=== PATIENT | female | born 1975 | race Caucasian/White ===

== ENCOUNTER → 2021-02-08 14:42 | Outpatient (CLI) | payer BC, SELFPAY ==
[2021-02-08 15:32] LABS: Basophils # 0.1 K/mm3 (0-0.2); Basophils % 0.7 % (0.1-2.0); Eosinophils # 0.1 K/mm3 (0.0-0.4); Eosinophils % 1.5 % (0.1-12.0); Hematocrit 45.5 % (37.0-47.0); Hemoglobin 14.9 g/dL (12.2-16.2); Lymphocytes # 2.5 K/mm3 (0.7-4.5); Lymphocytes % 37.3 % (10-50); Mean Corpuscular HGB Conc 32.7 g/dL (31.8-35.4); Mean Corpuscular Hemoglobin 30.2 pg (27.0-31.2); Mean Corpuscular Volume 92.4 fl (81-99); Mean Platelet Volume 10.5 fl (7.4-10.4); Monocytes # 0.4 K/mm3 (0.1-1.0); Neutrophils # 3.7 K/mm3 (1.8-7.8); Neutrophils % 54.5 % (37.0-80.0); Platelet Count 136 K/mm3 (142-424); Red Blood Count 4.92 M/mm3 (4.20-5.40); Red Cell Distribution Width 14.2 % (11.5-17.5); White Blood Count 6.8 K/mm3 (4.8-10.8)
[2021-02-08 15:39] LABS: Alanine Aminotransferase 18 U/L (12-78); Albumin Level 4.6 g/dl (3.5-5.0); Albumin/Globulin Ratio 1.5 (1.1-1.8); Alkaline Phosphatase 130 U/L (38-126); Anion Gap 18.9 mEq/L (5-15); Aspartate Amino Transferase 32 U/L (14-36); Bilirubin,Total 0.6 mg/dl (0.2-1.3); Blood Urea Nitrogen 10 mg/dl (7-17); Calcium 9.9 mg/dl (8.4-10.2); Carbon Dioxide 19 mmol/L (22.0-30.0); Chloride 106 mmol/L (98-107); Chol/HDL Ratio 6.9 (1-3.5); Cholesterol 213 mg/dl (140-200); Estimated Glomerular Filt Rate 135 ml/min (>60); GFR (African American) 163 ML/MIN (>60); Globulin 3.1 g/dL (1.3-3.2); Glucose 355 mg/dl (74-100); HDL Cholesterol 31 mg/dl (40-60); Potassium 4.9 mmoL/L (3.5-5.1); Sodium 139 mmol/L (136-145); Total Protein,Serum 7.7 g/dl (6.3-8.2); Triglycerides 289 mg/dl (30-150); VLDL Cholesterol 58 mg/dL (0-40)
[2021-02-08 15:41] LABS: Amphetamine/Metha Screen,Urine Negative ng/ml (<1000)
[2021-02-08 15:42] LABS: Barbiturates Screen,Urine Negative ng/ml (<200); Benzodiazepines Screen,Urine Negative ng/ml (<200)
[2021-02-08 15:43] LABS: Cannabinoid Screen,Urine Positive ng/ml (<50); Cocaine Screen,Urine Negative ng/ml (<300)
[2021-02-08 15:44] LABS: Methadone Screen,Urine Negative ng/ml (<300)
[2021-02-08 15:45] LABS: Opiate Screen,Urine Negative ng/ml (<300); Phencyclidine Screen,Urine Negative ng/ml (<25)
[2021-02-08 15:50] LABS: Direct LDL Cholesterol 131.91 mg/dL (100-129)
[2021-02-08 15:56] LABS: 25-OH Vitamin D, Total 18.3 ng/mL (30-100)
[2021-02-08 15:59] LABS: Microalbumin/Creatinine Ratio 28.7
[2021-02-08 16:02] LABS: Creatinine,Urine Random 77 mg/dL (Not Estab.)
[2021-02-08 16:10] LABS: Thyroid Stimulating Hormone 2.73 uIU/mL (0.465-4.68)
[2021-02-08 16:14] LABS: Free T4 (Free Thyroxine) 0.94 ng/dl (0.78-2.19)
[2021-02-08 16:15] LABS: Erythrocyte Sedimentation Rate 20 mm/hr (0-20)
[2021-02-08 17:29] LABS: Hemoglobin A1C 11.7 % (4.0-6.0)
[2021-02-10 10:23] LABS: Hep A Ab, IgM Negative (Negative); Hepatitis B Core Antibody IgM Negative (Negative); Hepatitis B Surface Antigen Negative (Negative); Hepatitis C Antibody <0.1 s/co ratio (0.0-0.9)
== END ==
PROVIDERS: Visit Provider Emergency Medicine
DX: E11.9 Type 2 diabetes mellitus without complications (principal); E55.9 Vitamin D deficiency, unspecified; R53.83 Other fatigue; Z79.4 Long term (current) use of insulin; Z79.899 Other long term (current) drug therapy
CPT/HCPCS: 80053; 80061; 80074; 80305; 82043; 82306; 82570; 83036; 84439; 84443; 85025; 85651

== ENCOUNTER → 2021-02-22 14:00 | Outpatient (CLI) | payer BC, SELFPAY ==
--- NOTE | 2021-02-22 14:00 | US_ITS ---
PROCEDURE: US EXTREMITY LT LIMITED CLINICAL INDICATION: questionable bakers cyst on left knee COMPARISON: No exams were available for comparison FINDINGS: No cyst or mass apparent. IMPRESSION: No evidence of Kohli's cyst. Dictated by: Teofilo Hatch MD 02/22/2021 15:53 Teofilo Hatch MD in [place] 02/22/2021 15:53
--- NOTE | 2021-02-22 14:37 | MR_ITS ---
PROCEDURE: MR CERVICAL SPINE WO CON CLINICAL INDICATION: neck pain COMPARISON: No exams were available for comparison TECHNIQUE: Standard multiplanar multiecho sequences are performed without contrast. 3-D MIP and myelographic images are also rendered and reviewed FINDINGS: Craniocervical junction has an unremarkable appearance. There is reversal cervical lordosis which may be due to patient positioning or muscle spasm. C2-C3: Mild uncovertebral hypertrophy on the left. Minimal left-sided foraminal narrowing. C3-C4: Mild degenerative disc disease. C4-C5: Degenerative disc disease with narrowing of the canal at 10 mm. Mild bilateral foraminal narrowing from uncovertebral hypertrophy. C5-C6: Degenerative disc disease with anterior osteophytes. Medium-sized central and right paracentral disc osteophyte complex causing compression upon the cord with flattening of the cord anteriorly and on the right with severe right lateral recess narrowing. This is causing moderate to severe canal stenosis of 7 mm. There is uncovertebral hypertrophy with bilateral foraminal narrowing. C6-C7: Degenerative disc disease with anterior osteophytes and canal stenosis of 9 mm. No cord flattening or impingement. C7-T1: Unremarkable. IMPRESSION: 1. Multilevel cervical spondylosis. Please see above for detailed description at each level. 2. C4-C5: Degenerative disc disease with narrowing of the canal at 10 mm. Mild bilateral foraminal narrowing from uncovertebral hypertrophy. 3. C5-C6: Degenerative disc disease with anterior osteophytes. Medium-sized central and right paracentral disc osteophyte complex causing compression upon the cord with flattening of the cord anteriorly and on the right with severe right lateral recess narrowing. This is causing moderate to severe canal stenosis of 7 mm. There is uncovertebral hypertrophy with bilateral foraminal narrowing. 4. C6-C7: Degenerative disc disease with anterior osteophytes and canal stenosis of 9 mm. No cord flattening or impingement. Dictated by: Teofilo Hatch MD 02/23/2021 08:13 Teofilo Hatch MD in [place] 02/23/2021 08:13
--- NOTE | 2021-02-22 14:37 | MR_ITS ---
PROCEDURE: MR LUMBAR SPINE WO CON CLINICAL INDICATION: back pain COMPARISON: MR [employer] ROOM/O MRI-L-SPINE W/O from 09/24/2016 TECHNIQUE: Standard multiplanar multiecho sequences are performed without contrast. 3-D MIP and myelographic images are also rendered and reviewed FINDINGS: There is normal alignment. The spinal cord ends at the L1-L2 level. L1-L2: Unremarkable. L2-L3: Unremarkable. L3-L4: Unremarkable. L4-5: Mild bulging disc with moderate facet and ligamentum hypertrophic change resulting in moderate bilateral lateral recess narrowing slightly greater on right and mild bilateral foraminal narrowing slightly greater on the left and slightly increased compared to the previous exam. The facet and ligamentum hypertrophic changes has also slightly increased. There is borderline canal stenosis with persistent transverse narrowing of the canal.. L5-S1: Degenerative disc disease with concentric bulging disc and small broad based central disc protrusion along facet and ligamentum hypertrophic changes. The small central disc protrusion has slightly increased compared to the previous exam. There is bilateral lateral recess narrowing and mild left foraminal narrowing. These findings are not significantly changed. No extruded herniated disc. IMPRESSION: 1. L4-5: Mild bulging disc with moderate facet and ligamentum hypertrophic change resulting in moderate bilateral lateral recess narrowing slightly greater on right and mild bilateral foraminal narrowing slightly greater on the left and slightly increased compared to the previous exam. The facet and ligamentum hypertrophic changes has also slightly increased. There is borderline canal stenosis with persistent transverse narrowing of the canal.. 2. L5-S1: Degenerative disc disease which is slightly worse with concentric bulging disc and small broad based central disc protrusion along facet and ligamentum hypertrophic changes. The small central disc protrusion has slightly increased compared to the previous exam. There is bilateral lateral recess narrowing and mild left foraminal narrowing. These findings are not significantly changed. 3. No extruded herniated disc. Dictated by: Teofilo Hatch MD 02/23/2021 08:03 Teofilo Hatch MD in [place] 02/23/2021 08:03
== END ==
PROVIDERS: PCP Emergency Medicine; Visit Provider Emergency Medicine
DX: M54.2 Cervicalgia (principal); M54.9 Dorsalgia, unspecified; M71.20 Synovial cyst of popliteal space [Baker], unspecified knee
CPT/HCPCS: 72141; 72148; 76376; 76882

== ENCOUNTER → 2021-04-01 14:13 | Outpatient (CLI) | payer BC, SELFPAY ==
[2021-04-01 15:04] LABS: Amphetamine/Metha Screen,Urine Negative ng/ml (<1000)
[2021-04-01 15:05] LABS: Barbiturates Screen,Urine Negative ng/ml (<200)
[2021-04-01 15:07] LABS: Benzodiazepines Screen,Urine Negative ng/ml (<200); Cannabinoid Screen,Urine Negative ng/ml (<50)
[2021-04-01 15:08] LABS: Cocaine Screen,Urine Negative ng/ml (<300)
[2021-04-01 15:09] LABS: Methadone Screen,Urine Negative ng/ml (<300); Opiate Screen,Urine Negative ng/ml (<300)
[2021-04-01 15:10] LABS: Phencyclidine Screen,Urine Negative ng/ml (<25)
== END ==
PROVIDERS: Visit Provider Emergency Medicine
DX: Z79.899 Other long term (current) drug therapy (principal)
CPT/HCPCS: 80305

== ENCOUNTER → 2021-05-28 14:03 | Outpatient (CLI) | payer BC, SELFPAY ==
[2021-05-28 15:53] LABS: Barbiturates Screen,Urine Negative ng/ml (<200)
[2021-05-28 15:54] LABS: Cannabinoid Screen,Urine Negative ng/ml (<50)
[2021-05-28 15:55] LABS: Cocaine Screen,Urine Negative ng/ml (<300)
[2021-05-28 15:56] LABS: Methadone Screen,Urine Negative ng/ml (<300); Opiate Screen,Urine Negative ng/ml (<300)
[2021-05-28 15:57] LABS: Phencyclidine Screen,Urine Negative ng/ml (<25)
[2021-05-28 16:13] LABS: Amphetamine/Metha Screen,Urine Negative ng/ml (<1000)
[2021-05-28 16:18] LABS: Benzodiazepines Screen,Urine Negative ng/ml (<200)
== END ==
PROVIDERS: Visit Provider Emergency Medicine
DX: Z79.899 Other long term (current) drug therapy (principal)
CPT/HCPCS: 80305

== ENCOUNTER → 2021-06-05 13:43 | Outpatient (CLI) | payer BC, SELFPAY | PROVIDERS: Visit Provider Nurse Practitioner Family | DX: E11.9 Type 2 diabetes mellitus without complications (principal) | CPT/HCPCS: 82043 ==

== ENCOUNTER → 2021-06-25 10:49 | Outpatient (CLI) | payer BC, SELFPAY ==
[2021-06-25 13:16] LABS: Hemoglobin A1C 4.9 % (4.0-6.0)
== END ==
PROVIDERS: PCP Emergency Medicine; Visit Provider Nurse Practitioner Family
DX: E11.9 Type 2 diabetes mellitus without complications (principal); Z79.4 Long term (current) use of insulin
CPT/HCPCS: 36415; 83036

== ENCOUNTER → 2021-07-23 14:42 | Outpatient (CLI) | payer BC, SELFPAY ==
[2021-07-23 15:28] LABS: Amphetamine/Metha Screen,Urine Negative ng/ml (<1000)
[2021-07-23 15:29] LABS: Barbiturates Screen,Urine Negative ng/ml (<200)
[2021-07-23 15:30] LABS: Benzodiazepines Screen,Urine Negative ng/ml (<200); Cannabinoid Screen,Urine Negative ng/ml (<50)
[2021-07-23 15:32] LABS: Cocaine Screen,Urine Negative ng/ml (<300); Methadone Screen,Urine Negative ng/ml (<300)
[2021-07-23 15:33] LABS: Opiate Screen,Urine Positive ng/ml (<300); Phencyclidine Screen,Urine Negative ng/ml (<25)
== END ==
PROVIDERS: Visit Provider Emergency Medicine
DX: Z79.899 Other long term (current) drug therapy (principal)
CPT/HCPCS: 80305

== ENCOUNTER → 2021-09-16 15:53 | Outpatient (CLI) | payer BC, SELFPAY ==
--- NOTE | 2021-09-16 15:55 | CA_ITS ---
FINAL REPORT TECHNIQUE: Ultrasound images of the deep venous system were obtained from the left groin to the calf veins. CLINICAL HISTORY: EDEMA,LATERAL CALF PAIN,NKI FINDINGS: The deep venous system is normally compressible. Normal flow is identified. IMPRESSION: No evidence of left lower extremity DVT. Reviewed, Interpreted and Dictated by Terrell Fermin MD Transcribed by Tory Vinson Authenticated by Terrell Fermin MD on 09/16/2021 04:52:37 PM [facility]
--- NOTE | 2021-09-16 16:23 | XR_ITS ---
FINAL REPORT CLINICAL HISTORY: pain FINDINGS: LEFT ANKLE: Three views of the left ankle were obtained. There is no acute fracture or dislocation. There is mild anterior subluxation of the talus relative to the distal tibia concerning for underlining ligamentous instability. There is a small plantar spur. IMPRESSION: Findings concerning for ligamentous instability. Reviewed, Interpreted and Dictated by Terrell Fermin MD Transcribed by Troy Vinson Authenticated by Terrell Fermin MD on 09/19/2021 10:56:50 AM [facility]
== END ==
PROVIDERS: PCP Emergency Medicine; Visit Provider Nurse Practitioner Family
DX: M25.572 Pain in left ankle and joints of left foot (principal); M25.472 Effusion, left ankle
CPT/HCPCS: 73610; 93971

== ENCOUNTER → 2021-09-18 16:00 | Outpatient (CLI) | payer BC, SELFPAY ==
[2021-09-18 18:08] LABS: Amphetamine/Metha Screen,Urine Negative ng/ml (<1000); Barbiturates Screen,Urine Negative ng/ml (<200)
[2021-09-18 18:09] LABS: Benzodiazepines Screen,Urine Negative ng/ml (<200); Cannabinoid Screen,Urine Positive ng/ml (<50)
[2021-09-18 18:10] LABS: Cocaine Screen,Urine Negative ng/ml (<300)
[2021-09-18 18:11] LABS: Methadone Screen,Urine Negative ng/ml (<300); Opiate Screen,Urine Negative ng/ml (<300)
[2021-09-18 18:12] LABS: Phencyclidine Screen,Urine Negative ng/ml (<25)
== END ==
PROVIDERS: Visit Provider Emergency Medicine
DX: Z79.899 Other long term (current) drug therapy (principal)
CPT/HCPCS: 80305

== ENCOUNTER → 2022-03-28 09:56 | Outpatient (CLI) | payer BC, SELFPAY ==
--- NOTE | 2022-03-28 10:04 | XR_ITS ---
FINAL REPORT CLINICAL HISTORY: wrist pain FINDINGS: 3 views of the right wrist were obtained. There is no acute fracture or dislocation. There is mild degenerative change along the radial aspect of the wrist. There is no soft tissue abnormality. IMPRESSION: Mild degenerative change. Reviewed, Interpreted and Dictated by Silvestre Guadalupe III, MD Transcribed by Troy Vinson Authenticated and [facility]
== END ==
PROVIDERS: PCP Emergency Medicine; Visit Provider Orthopaedic Surgery
DX: M25.531 Pain in right wrist (principal)
CPT/HCPCS: 73110

== ENCOUNTER 2022-03-28 11:31 | Outpatient (RCR) | payer BC, SELFPAY | END 2022-03-28 12:30 | disposition home or self-care (01) | LOC: OT 11:31 | PROVIDERS: Visit Provider Orthopaedic Surgery | DX: G56.01 Carpal tunnel syndrome, right upper limb (principal) | CPT/HCPCS: 97763 ==

== ENCOUNTER → 2022-04-30 15:15 | Outpatient (CLI) | payer BC, SELFPAY ==
[2022-04-30 18:52] LABS: Amphetamine/Metha Screen,Urine Negative ng/ml (<1000)
[2022-04-30 18:53] LABS: Barbiturates Screen,Urine Negative ng/ml (<200)
[2022-04-30 18:55] LABS: Benzodiazepines Screen,Urine Negative ng/ml (<200); Cannabinoid Screen,Urine Negative ng/ml (<50)
[2022-04-30 18:56] LABS: Cocaine Screen,Urine Negative ng/ml (<300)
[2022-04-30 18:57] LABS: Methadone Screen,Urine Negative ng/ml (<300); Opiate Screen,Urine Negative ng/ml (<300)
[2022-04-30 18:58] LABS: Phencyclidine Screen,Urine Negative ng/ml (<25)
== END ==
PROVIDERS: PCP Emergency Medicine; Visit Provider Emergency Medicine
DX: Z79.899 Other long term (current) drug therapy (principal)
CPT/HCPCS: 80305

== ENCOUNTER → 2022-06-25 19:25 | Outpatient (CLI) | payer BC, SELFPAY ==
[2022-06-25 15:07] LABS: Basophils # 0.1 K/mm3 (0-0.2); Basophils % 0.9 % (0.1-2.0); Eosinophils # 0.1 K/mm3 (0.0-0.4); Hemoglobin 15.5 g/dL (12.2-16.2); Lymphocytes # 2.8 K/mm3 (0.7-4.5); Lymphocytes % 33.3 % (10-50); Mean Corpuscular Hemoglobin 32.7 pg (27.0-31.2); Mean Corpuscular Volume 99.1 fl (81-99); Mean Platelet Volume 10.4 fl (7.4-10.4); Monocytes # 0.6 K/mm3 (0.1-1.0); Monocytes % 6.8 % (1.7-9.3); Neutrophils # 4.9 K/mm3 (1.8-7.8); Platelet Count 162 K/mm3 (142-424); Red Blood Count 4.74 M/mm3 (4.20-5.40); Red Cell Distribution Width 15.1 % (11.5-17.5); White Blood Count 8.4 K/mm3 (4.8-10.8)
[2022-06-25 15:26] LABS: Free T4 (Free Thyroxine) 0.89 ng/dl (0.78-2.19)
[2022-06-25 16:14] LABS: Alanine Aminotransferase 19 U/L (12-78); Albumin Level 4.6 g/dl (3.5-5.0); Albumin/Globulin Ratio 1.5 (1.1-1.8); Alkaline Phosphatase 91 U/L (38-126); Anion Gap 11.5 mEq/L (5-15); Aspartate Amino Transferase 34 U/L (14-36); Bilirubin,Total 0.4 mg/dl (0.2-1.3); Blood Urea Nitrogen 16 mg/dl (7-17); Calcium 9.5 mg/dl (8.4-10.2); Carbon Dioxide 24 mmol/L (22.0-30.0); Chloride 105 mmol/L (98-107); Chol/HDL Ratio 6.2 (1-3.5); Cholesterol 204 mg/dl (140-200); Estimated Glomerular Filt Rate 91 ml/min (>60); GFR (African American) 110 ML/MIN (>60); Glucose 167 mg/dl (74-100); HDL Cholesterol 33 mg/dl (40-60); Lipase 41 U/L (23-300); Potassium 4.5 mmoL/L (3.5-5.1); Sodium 136 mmol/L (136-145); Total Protein,Serum 7.6 g/dl (6.3-8.2); Triglycerides 371 mg/dl (30-150); VLDL Cholesterol 74 mg/dL (0-40)
[2022-06-25 16:25] LABS: Direct LDL Cholesterol 129.52 mg/dL (100-129)
[2022-06-25 16:44] LABS: Thyroid Stimulating Hormone 2.45 uIU/mL (0.465-4.68)
[2022-06-25 19:16] LABS: 25-OH Vitamin D, Total 21.4 ng/mL (30-100)
== END ==
PROVIDERS: PCP Emergency Medicine; Visit Provider Emergency Medicine
DX: E11.9 Type 2 diabetes mellitus without complications (principal); E55.9 Vitamin D deficiency, unspecified; Z79.4 Long term (current) use of insulin
CPT/HCPCS: 80053; 80061; 82306; 83690; 84439; 84443; 85025

== ENCOUNTER → 2022-12-09 18:50 | Outpatient (CLI) | payer BC, SELFPAY ==
[2022-12-09 17:26] LABS: Microalbumin/Creatinine Ratio 6.4
[2022-12-09 17:56] LABS: Creatinine,Urine Random 97 mg/dL (Not Estab.)
== END ==
PROVIDERS: PCP Emergency Medicine; Visit Provider Emergency Medicine
DX: E11.9 Type 2 diabetes mellitus without complications (principal); Z79.84 Long term (current) use of oral hypoglycemic drugs
CPT/HCPCS: 82043; 82570

== ENCOUNTER → 2023-02-06 06:57 | Outpatient (CLI) | payer BC, SELFPAY ==
[2023-02-06 13:44] LABS: Amphetamine/Metha Screen,Urine Negative ng/ml (<1000)
[2023-02-06 13:45] LABS: Barbiturates Screen,Urine Negative ng/ml (<200); Benzodiazepines Screen,Urine Negative ng/ml (<200)
[2023-02-06 13:46] LABS: Cannabinoid Screen,Urine Negative ng/ml (<50); Cocaine Screen,Urine Negative ng/ml (<300)
[2023-02-06 13:47] LABS: Methadone Screen,Urine Negative ng/ml (<300)
[2023-02-06 13:48] LABS: Opiate Screen,Urine Negative ng/ml (<300); Phencyclidine Screen,Urine Negative ng/ml (<25)
== END ==
PROVIDERS: PCP Emergency Medicine; Visit Provider Emergency Medicine
DX: Z79.899 Other long term (current) drug therapy (principal)
CPT/HCPCS: 80305

== ENCOUNTER 2023-06-03 12:11 | Outpatient (CLI) | payer BC, SELFPAY ==
[2023-06-03 16:36] LABS: Amphetamine/Metha Screen,Urine Negative ng/ml (<1000); Barbiturates Screen,Urine Negative ng/ml (<200)
[2023-06-03 17:28] LABS: Benzodiazepines Screen,Urine Negative ng/ml (<200); Cannabinoid Screen,Urine Negative ng/ml (<50); Cocaine Screen,Urine Negative ng/ml (<300); Methadone Screen,Urine Negative ng/ml (<300); Opiate Screen,Urine Negative ng/ml (<300); Phencyclidine Screen,Urine Negative ng/ml (<25)
[2023-06-09 17:09] LABS: Opiates Negative (Cutoff=100); Oxycodone (GC/MS) 2235 ng/mL (Cutoff=100); Oxymorphone (GC/MS) 711 ng/mL (Cutoff=100)
[2023-06-10 10:34] LABS: Gabapentin,Urine 388.2 ug/mL (.)
== END 2023-06-03 23:59 ==
LOC: LAB.DROPOF 12:11
PROVIDERS: PCP Nurse Practitioner Family; Visit Provider Nurse Practitioner Family
DX: Z79.899 Other long term (current) drug therapy (principal); M47.22 Other spondylosis with radiculopathy, cervical region; G62.9 Polyneuropathy, unspecified
CPT/HCPCS: 80307; 80361; 80365; G0480

== ENCOUNTER 2023-07-24 09:00 | Outpatient (RCR) | payer BC, SELFPAY ==
--- NOTE | 2023-06-23 12:16 | HMH.PTOPEV ---
PT Outpatient Evaluation Rehab PT Outpatient Evaluation Start: 06/23/23 11:01 Freq: Status: Active Protocol: Document 06/23/23 11:01 TARA (Rec: 06/23/23 12:16 TARA [id number]) E-signed By Paige Matthew, PT Outpatient Therapy Subjective History Subjective History Pt is a 47 y/o female who reports chronic neck pain for ~10 years. Pt also reports intermittent right upper extremity pain and paresthesia . Pt reports numbness/tingling down her right arm into all fingers although she states it is more intense in her pinky and ring finger. Pt also reports constant pain/burning across bilateral shoulder blades. 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 Pt reports she has experienced worsening of pain in the past few months without known trauma/injury. Pt states she did see a neurosurgeon in [place] and they took xrays. Pt reports she has not heard back from them regarding plans for treatment. Pt reports her last MRI of her neck was a few years ago showing DDD and nerve compression per pt. Pt states pain is worse in the mornings. Pt reports pain is aggravated by lifting, turning her head to the R>L, and looking up/down. Pt also reports infrequent headaches that start in the right posterior neck and refer up the right side of her head to the forehead region. Pt denies light/noise sensitivity, dizziness, and n/v with headaches. Medical History: Type II Diabetes, Seizures - neurology appointment 07/07/22, hyperlipidemia, COPD, Asthma, Depression, Anxiety New diagnosis of cancer in past 12 No months? Chief Complaint Pain,Paresthesia,Weakness, Decreased Senior Php Developer Strength Symptom Type Ache,Sharp,Dull,Numbness, Tingling Symptoms Relieved By Rest/Positioning Symptoms Aggravated By Physical Activity Prior Functional Limitations None Current Functional Limitations Reaching,Lifting,Housework Symptom Description Constant but Variable Level of pain today (0-10) 6 Pain scale - at its best (0-10) 4 Pain scale - at its worst (0-10) 8 Cervical Eval Palpation Cervical Muscles R Cervical Paraspinal,L Cervical Paraspinal,R Suboccipital,L Suboccipital,R CT Junction,L CT Junction,R Upper Trapezius,L Upper Trapezius,R Thoracic Paraspinals,L Thoracic Paraspinals Cervical/Thoracic Palpation Findings Tenderness,Muscle Guarding Posture Head/C-Spine Posture Sitting Position Flexed Head/C-Spine Posture Standing Position Flexed Flexibility Deficits Upper Trapezius Muscle Length (R) Moderate Tightness,(L) Moderate Tightness Levaetor Scapulae Muscle Length (R) Moderate Tightness,(L) Moderate Tightness Pectoralis Major Muscle Length (R) Mild Tightness,(L) Mild Tightness Pectoralis Minor Muscle Length (R) Mild Tightness,(L) Mild Tightness Passive Joint Mobility Cervical PIVM Dec: R C2/3 L C2/3 R C3/4 L C3/4 R C4/5 L C4/5 R C5/6 L C5/6 R C6/7 L C6/7 R C7/T1 L C7/T1 AROM Cervical Spine Extension Active Range of 20 Motion (degrees) Cervical Spine Flexion Active Range of 28 Motion (degrees) Cervical Spine Right Lateral Flexion 25 Active Range of Motion (degrees) Cervical Spine Left Lateral Flexion 25 Active Range of Motion (degrees) Cervical Spine Right Rotation Active 40 Range of Motion (degrees) Cervical Spine Left Rotation Active 45 Range of Motion (degrees) MMT Bilateral Deltoid (C5) 5 Normal Biceps Brachii Strength Grade 5 Normal Triceps Brachii Strength Grade 4 Good Extensor Pollicis Longus Strength Grade 5 Normal Finger Abduction Strength Grade 5 Normal DTR Rt Biceps 1+ Lt Biceps 2+ Rt Brachioradialis 1+ Lt Brachioradialis 2+ Rt Triceps 2+ Lt Triceps 2+ Special Test C-Spine Foraminal Compression (Spurling) Positive Right Test C-spine Verterbral Accessory Movements Central P/A Derby,Right P/A that Elicit Symptoms Derby,Left P/A Derby C-Spine Foraminal Distraction Test Positive C-Spine Compression Test Positive Right Shoulder/Elbow Eval Shoulder Objective Measurements Shoulder MMT Bilateral Lower Trapezius Strength Grade 4- Good- Middle Trapezius Strength Grade 4- Good- Rhomboids Strength Grade 4- Good- Upper Trapezius/Levator Scapulae 4 Good Elbow Objective Measurements Wrist/Hand Eval Senior Php Developer/Pinch Strength Left Senior Php Developer Strength Measurement (lbs) 38.6 Right Senior Php Developer Strength Measurement (lbs) 37.3 Neck Disability Index Neck Disability Index Section 1: Pain Intensity The pain is moderate at the moment Section 2: Personal Care (washing, I can look after myself dressing, etc.) normally but it causes extra pain Section 3: Lifting Pain prevents me lifting heavy weights off the floor, but I can manage Section 4: Reading I can read as much as I want to with slight pain in my neck Section 5: Headaches I have no headaches at all Section 6: Concentration I can concentrate fully when I want to with no difficulty Section 7: Work I can only do my usual work, but no more Section 8: Driving I can drive my car without any neck pain Section 9: Sleeping My sleep is midly disturbed (1 -2 hrs sleepless) Section 10: Recreation I am able to engage in most, but not all of my usual recreation NDI Score 11 Outpatient Therapy Assessment Impairments Problems/Impairmments Palpation Tenderness,Impaired Range of Motion,Impaired Strength,Impaired Lifting, Impaired Household Care, Impaired Recreational Activities,Subjective C/O Pain ,Impaired Self Care/Self Management Prognosis Rehab Potential Good Clinical Impression Consistent with Diagnosis Yes Short Term Goals Number of Weeks 3 Increase Range of Motion Yes: Improve cervical AROM by 5 degrees ea plane Increase Strength Yes: Improve R concaving machine operator strength equal to L Decrease Subjective C/O Pain Yes: Improve pain at worst to 6/10 to improve overall QOL Improve Self Care/Self Management Yes Patient to be Ind w/ HEP Yes Snf Goals Number of Weeks 6 Decreased Palpation Tenderness Yes: 1-2/4 TTP of cervical mm and SP Increase Range of Motion Yes: Improve cervical AROM flex/ext to 40, rot to 60, LF to 40 Increase Strength Yes: Improve scapular strength to 4-4+/5 grossly to assist w function/posture Improve Neck Disability Index Score Yes: Improve score to 6 or less to improve overall QOL Decrease Subjective C/O Pain Yes: Improve pain at worst to 6/10 to improve overall QOL Outpatient Therapy Plan of Care Treatment Plan May Include Therapeutic Exercise Including Home Yes Exercise Program Manual Therapy Techniques Yes Neuromuscular Re-education Yes Therapeutic Activities to Return to Yes Previous Functional/Work Level Gait Training Yes ADL/Self Care Education Yes Mechanical Traction Yes Dry Needling Yes Thermal Modalities Yes Electrical Stimulation Yes Ultrasound/Phonophoresis Yes Iontophoresis Yes Massage Yes Eval/Re-Eval Yes Frequency Times per week 2 Duration Number of Weeks 4-6 Addendums This patient is a candidate for social No or vocational rehab? Patient/Guardian verbally acknowledges Yes understanding of treatment program and consents to further treatment? Patient/Guardian verbally acknowledges Yes understanding of diagnosis, prognosis and goals for treatment? Eval Complexity PT Charges 41141 - Low Complexity PHYSICIAN CERTIFICATION: I certify the specified therapy services for Sydnee Nori Bonner are required, authorized, and reviewed every 30 days.
--- NOTE | 2023-07-21 16:36 | HMH.RHREAS ---
Rehab Reassessment Rehab OP Re-assessment Start: 06/23/23 11:01 Freq: Status: Active Protocol: Document 07/21/23 13:00 TARA (Rec: 07/21/23 16:36 TARA [id number]) E-signed By Paige Matthew, PT Neck Disability Index Neck Disability Index Section 1: Pain Intensity The pain is very mild at moment Section 2: Personal Care (washing, I can look after myself dressing, etc.) normally but it causes extra pain Section 3: Lifting Pain prevents me from lifting heavy weights, but I can manage light to Section 4: Reading I can read as much as I want to with slight pain in my neck Section 5: Headaches I have slight headaches, which come infrequently Section 6: Concentration I can concentrate fully when I want to with no difficulty Section 7: Work I can do most of my usual work , but no more Section 8: Driving I can drive my car as long as I want with slight pain in my neck Section 9: Sleeping My sleep is greatly disturbed (3-5 hrs sleepless) Section 10: Recreation I am able to engage in most, but not all of my usual recreation NDI Score 16 Rehab Re-assessment Subjective Subjective Pt reports she feels 20-40% improved since starting PT. Pt reports continued pain of her neck and shoulder blades rated 8/10 at worst. Pt reports this pain occurs with lifting and playing with her 35# grandchild. Pt reports continued intermittent radicular symptoms in the right arm with numbness/ tingling into her pinky and ring fingers. Pt reports decreased automotive mechanic strength of the right hand often dropping items. Pt reports compliance with HEP. Objective Objective Notes Cervical AROM: flex 40, ext 30 , RLF 30, LLF 25, Rrot 50, Lrot 50 Scap strength: 4/5 grossly R automotive mechanic strength: 37# Assessment Progress Assessment Slower Than Expected Assessment Notes Pt has attended 6 PT visits consisting of aerobic exercise , cervical AROM/stretching, scapular strengthening, neural glides, manual therapy, modalities and HEP. Pt demonstrated slightly improved cervical AROM in all planes with exception of left lateral flexion. Pt demonstrated no change in R automotive mechanic strength and slight regression in NDI functional outcome measure this date. Pt would benefit from continued to PT to improve subjective report of pain and radicular symptoms, scapular and automotive mechanic strength, and functional activity tolerance to improve overall QOL and function. If patient does not improve with conservative treatment within 2 weeks, then refer back to MD for further treatment options . Patient goals met ST/5 Goals Not Met p! at worst, automotive mechanic strength, cervical LF AROM Revised Goals n/a Plan Plan Continue initial POC, incorporate trial of mechanical cervical traction. Frequency of Therapy 2x/week Duration of therapy 2-4 more weeks Time and Billing Re-Eval Time 12 Re-Eval Billing Units 1 PHYSICIAN CERTIFICATION: I certify the specified therapy services for Sydnee Bonner are required, authorized, and reviewed every 30 days.
== END 2023-07-24 10:30 | disposition home or self-care (01) ==
LOC: PT 09:00
PROVIDERS: PCP Nurse Practitioner Family; Visit Provider Nurse Practitioner Family
DX: M47.22 Other spondylosis with radiculopathy, cervical region (principal); M48.02 Spinal stenosis, cervical region
CPT/HCPCS: 97010; 97012; 97014; 97110; 97140; 97163; 97164; 97530; G0283

== ENCOUNTER 2023-08-12 08:00 | Outpatient (RCR) | payer BC, SELFPAY ==
--- NOTE | 2023-07-29 14:03 | HMH.PTOPEV ---
PT Outpatient Evaluation Rehab PT Outpatient Evaluation Start: 07/29/23 13:49 Freq: Status: Active Protocol: Document 07/29/23 13:50 THA (Rec: 07/29/23 14:02 THA [id number]) E-signed By Carlo Stover, PT Outpatient Therapy Subjective History Subjective History Patient is a 47 year old female presenting to outpatient PT with reports of chronic LBP with RLE radicular symptoms. Symptoms of insidious onset starting approx 6 years ago. Most recent imaging indicates L 3/4 disc bulge and L5/S1 DDD. Comorbidities include hx of diabetes with BLE neuropathy, seizures, HL and tachycardia. Chief Complaint Pain,Stiff,Paresthesia Symptom Type Sharp,Numbness,Tingling Symptoms Relieved By Ice,Prescription Meds Symptoms Aggravated By Sitting,Bending/Stooping, Lifting Prior Functional Limitations None Current Functional Limitations Reaching,Lifting,Housework, Sleeping,Standing,Sitting, Walking,Bending/Stooping Symptom Description Constant but Variable Level of pain today (0-10) 5 Pain scale - at its best (0-10) 3 Pain scale - at its worst (0-10) 7 Lumbopelvic Eval Posture Thoracic Spine Posture Standing Position Increased Kyphosis Lumbar Spine Posture Standing Position Increased Lordosis Assistive device Assistive Devices None / NA Palapation tenderness right paraspinal tenderness Yes: L3-S1 3/4 buttock tenderness Yes: R>L Accessory Movement L3 right L4 right L5 right S1 right Range of Motion Lumbar Spine Active Flexion Range of 62 Motion (degrees) Lumbar Spine Active Extension Range of 12 Motion (degrees) Left Lumbar Spine Lateral Flexion Active 12 Range of Motion (degrees) Right Lumbar Spine Lateral Flexion 16 Active Range of Motion (degrees) Lumbar Spine ROM Limitations Soft Tissue Tightness,Bony Restriction Manual Muscle Test Right Knee Extension Strength Grade 5 Normal Knee Flexion Strength Grade 5 Normal Hip Flexion Strength Grade 5 Normal Extensor Hallucis Longus Strength Grade 5 Normal Ankle Dorsiflexion Strength Grade 5 Normal Gastronemius/Soleus Strength Grade 5 Normal Altered Sensation LE Dermatome Level L5,S1 Comment NT Special Tests Hip Andrade (RAFAL) Test Positive Left,Positive Right Hip Naz Test Positive Left,Positive Right Hip Piriformis Test Positive Left,Positive Right Sciatic Nerve Tension Test Negative Left,Positive Right Gary Test Positive Sacroiliac Joint Compression Test Negative Left,Negative Right Sacroiliac Joint Distraction Test Negative Left,Negative Right Lumbar [place] Dell Distraction Test/Manual Positive Traction Oswestry Index Section 1 Pain Intensity The pain comes and goes and is moderate Section 2 Personal Care (Washing,Dresing) my way of washing or dressing even though it causes some pain Section 3 Lifting Pain prevents me from lifting weights off the floor Section 4 Walking I cannot walk more than one mile wihtout increasing pain Section 5 Sitting Pain prevents me from sitting for more than one hour Section 6 Standing I cannot stand more than 1 hour without increasing pain Section 7 Sleeping Because of my pain, my normal night's sleep is less than 6 hours sleep Section 8 Social Life My social life is normal but increases the degree of pain Section 9 Traveling I get some pain when traveling , but none of my usual forms of travel m Section 10 Changing Degreee of Pain My pain is neither getting better or worse Score and Risk Level Oswestry Sc 18 Oswestry Risk Level Moderate Disability Outpatient Therapy Assessment Impairments Problems/Impairmments Palpation Tenderness,Impaired Range of Motion,Impaired Strength,Impaired Walking, Impaired Standing,Impaired Sitting,Impaired Lifting, Impaired Household Care, Impaired Bending,Subjective C/ O Pain Prognosis Rehab Potential Good Clinical Impression Consistent with Diagnosis No Short Term Goals Number of Weeks 2 Decrease Subjective C/O Pain Yes: 5/10 at worst Patient to be Ind w/ HEP Yes Detention Goals Number of Weeks 4-6 Decreased Palpation Tenderness Yes: 1/4 Increase Range of Motion Yes: WNL Increase Strength Yes: 5/5 core stabilizers Increase Ability to Walk Yes: 30 min without difficulty Increase Ability to Stand Yes: Improve Ability For Household Care Yes Improve Ability to Bend Yes Improve Oswestry Score Yes: mild disability Decrease Subjective C/O Pain Yes: 2/10 at worst Outpatient Therapy Plan of Care Treatment Plan May Include Therapeutic Exercise Including Home Yes Exercise Program Manual Therapy Techniques Yes Neuromuscular Re-education Yes Therapeutic Activities to Return to Yes Previous Functional/Work Level Gait Training Yes ADL/Self Care Education Yes Mechanical Traction Yes Dry Needling Yes Thermal Modalities Yes Electrical Stimulation Yes Ultrasound/Phonophoresis Yes Iontophoresis Yes Orthotics/Bracing/Splinting Yes Massage Yes Eval/Re-Eval Yes Frequency Times per week 2 Duration Number of Weeks 4-6 Addendums This patient is a candidate for social No or vocational rehab? Patient/Guardian verbally acknowledges Yes understanding of treatment program and consents to further treatment? Patient/Guardian verbally acknowledges Yes understanding of diagnosis, prognosis and goals for treatment? Eval Complexity PT Charges 03734 - Moderate Complexity Shoulder/Elbow Eval Shoulder Objective Measurements Elbow Objective Measurements PHYSICIAN CERTIFICATION: I certify the specified therapy services for Sydnee Nori Bonner are required, authorized, and reviewed every 30 days.
== END 2023-08-12 09:00 | disposition home or self-care (01) ==
LOC: PT 08:00
PROVIDERS: Visit Provider Nurse Practitioner Family
DX: M54.50 Low back pain, unspecified (principal); M48.061 Spinal stenosis, lumbar region without neurogenic claudication
CPT/HCPCS: 97010; 97014; 97140; 97163; 97530; G0283

== ENCOUNTER 2023-08-12 09:16 | Outpatient (CLI) | payer BC, SELFPAY ==
[2023-08-12 10:27] LABS: Basophils # 0.1 K/mm3 (0-0.2); Basophils % 1.4 % (0.1-2.0); Eosinophils # 0.1 K/mm3 (0.0-0.4); Eosinophils % 0.9 % (0.1-12.0); Hematocrit 47.9 % (37.0-47.0); Hemoglobin 15.7 g/dL (12.2-16.2); Lymphocytes # 3.6 K/mm3 (0.7-4.5); Lymphocytes % 49.3 % (10-50); Mean Corpuscular HGB Conc 32.8 g/dL (31.8-35.4); Mean Corpuscular Hemoglobin 32.3 pg (27.0-31.2); Mean Corpuscular Volume 98.6 fl (81-99); Mean Platelet Volume 9.6 fl (7.4-10.4); Monocytes # 0.5 K/mm3 (0.1-1.0); Monocytes % 6.2 % (1.7-9.3); Neutrophils # 3.1 K/mm3 (1.8-7.8); Neutrophils % 42.2 % (37.0-80.0); Platelet Count 122 K/mm3 (142-424); Red Blood Count 4.85 M/mm3 (4.20-5.40); Red Cell Distribution Width 14.8 % (11.5-17.5); White Blood Count 7.3 K/mm3 (4.8-10.8)
[2023-08-12 12:41] LABS: Chloride 104 mmol/L (98-107)
[2023-08-12 12:42] LABS: Potassium 4.3 mmoL/L (3.5-5.1); Sodium 139 mmol/L (136-145)
[2023-08-12 12:44] LABS: Blood Urea Nitrogen 15 mg/dl (7-17); Estimated Glomerular Filt Rate 68 ml/min (>60); GFR (African American) 82 ML/MIN (>60)
[2023-08-12 12:45] LABS: Alanine Aminotransferase 12 U/L (12-78); Albumin/Globulin Ratio 1.5 (1.1-1.8); Alkaline Phosphatase 86 U/L (38-126); Anion Gap 8.3 mEq/L (5-15); Aspartate Amino Transferase 22 U/L (14-36); Bilirubin,Total 0.4 mg/dl (0.2-1.3); Calcium 9.5 mg/dl (8.4-10.2); Carbon Dioxide 31 mmol/L (22.0-30.0); Globulin 2.7 g/dL (1.3-3.2); Glucose 105 mg/dl (74-100); Iron 95 ug/dL (37-170); Total Protein,Serum 6.7 g/dl (6.3-8.2)
[2023-08-12 12:54] LABS: Total Iron Binding Capacity 398 ug/dL (265-497)
[2023-08-12 13:21] LABS: Ferritin 16.8 ng/ml (6.24-137)
[2023-08-12 13:26] LABS: Valproic Acid, (Depakene) 72.7 ug/ml (50-100)
[2023-08-12 13:50] LABS: Thyroid Stimulating Hormone 3.79 uIU/mL (0.465-4.68)
[2023-08-12 14:26] LABS: Vitamin B12 317 pg/mL (239-931)
[2023-08-12 14:27] LABS: Folate 6.95 ng/mL
[2023-08-12 15:03] LABS: Amphetamine/Metha Screen,Urine Negative ng/ml (<1000)
[2023-08-12 15:04] LABS: Barbiturates Screen,Urine Negative ng/ml (<200)
[2023-08-12 15:05] LABS: Benzodiazepines Screen,Urine Negative ng/ml (<200); Cannabinoid Screen,Urine Negative ng/ml (<50)
[2023-08-12 15:06] LABS: Cocaine Screen,Urine Negative ng/ml (<300)
[2023-08-12 15:07] LABS: Opiate Screen,Urine Negative ng/ml (<300)
[2023-08-12 15:08] LABS: Phencyclidine Screen,Urine Negative ng/ml (<25)
[2023-08-12 15:14] LABS: Methadone Screen,Urine Negative ng/ml (<300)
== END 2023-08-12 23:59 ==
LOC: LAB 09:16
PROVIDERS: PCP Nurse Practitioner Family; Visit Provider Nurse Practitioner Family
DX: R40.4 Transient alteration of awareness (principal); R94.01 Abnormal electroencephalogram [EEG]; G47.9 Sleep disorder, unspecified; G25.81 Restless legs syndrome; E66.9 Obesity, unspecified; Z86.69 Personal history of other diseases of the nervous system and sense organs; Z86.2 Personal history of diseases of the blood and blood-forming organs and certain disorders involving the immune mechanism; Z87.898 Personal history of other specified conditions; Z72.0 Tobacco use; Z79.4 Long term (current) use of insulin; Z79.899 Other long term (current) drug therapy; Z68.35 Body mass index [BMI] 35.0-35.9, adult
CPT/HCPCS: 36415; 80053; 80164; 80307; 82607; 82728; 82746; 83540; 83550; 84443; 85025

== ENCOUNTER 2023-08-18 08:51 | Outpatient (CLI) | payer BC, SELFPAY ==
--- NOTE | 2023-08-18 08:54 | MR_ITS ---
FINAL REPORT CLINICAL HISTORY: Seizure protocol. FINDINGS: Multiplanar MR imaging of the brain was performed without and with contrast. There is no evidence of Chiari malformation. There are a few tiny subtle scattered foci in the deep white matter which is abnormal for age. Findings are best seen on image 17 of series 5. Hippocampal formation is intact and symmetric. There is no evidence of intracranial hemorrhage or mass. No abnormal extra-axial fluid collection is seen. The ventricular size is within normal limits. There is no evidence of shift of the midline structures. The posterior fossa and brainstem have an unremarkable appearance. No area of abnormal restricted diffusion is identified. No abnormal contrast enhancement is seen. Normal major vessel vascular flow voids are noted. There is extensive lobular mucoperiosteal thickening in the maxillary sinuses, right greater than left consistent with chronic sinusitis. IMPRESSION: Nonspecific microvascular ischemia which is abnormal for patient's age but can be seen with migraine headaches. Chronic maxillary sinusitis. Reviewed, Interpreted and Dictated by Terrell Fermin MD Transcribed by Mercy Healy Authenticated and [facility]
[2023-08-18] MEDS: GADOTERIDOL INJ 17ML SYRINGE 17 ML IV (09:45)
[2023-08-18] MEDS: SODIUM CHLORIDE 0.9% 10ML SYR (RAD ONLY) 10 ML IV (09:46)
== END 2023-08-18 23:59 ==
LOC: RAD 08:52
PROVIDERS: PCP Nurse Practitioner Family; Visit Provider Nurse Practitioner Family
DX: R40.4 Transient alteration of awareness (principal); R94.01 Abnormal electroencephalogram [EEG]; G47.9 Sleep disorder, unspecified; G25.81 Restless legs syndrome; Z86.69 Personal history of other diseases of the nervous system and sense organs; Z86.2 Personal history of diseases of the blood and blood-forming organs and certain disorders involving the immune mechanism; Z87.898 Personal history of other specified conditions; F17.210 Nicotine dependence, cigarettes, uncomplicated; E66.9 Obesity, unspecified; Z68.35 Body mass index [BMI] 35.0-35.9, adult
CPT/HCPCS: 70553; A9576

== ENCOUNTER 2023-09-25 14:39 | Outpatient (CLI) | payer BC, SELFPAY ==
--- NOTE | 2023-09-25 14:39 | MR_ITS ---
FINAL REPORT TECHNIQUE: Multiplanar MR without contrast CLINICAL HISTORY: left sided neck pain. dominguez, numbness and tingling down left arm. no injury or trauma. COMPARISON: 02/22/2021 FINDINGS: Limited images of the posterior fossa are unremarkable. Alignment is normal. There is very subtle increased density in the central spinal cord at C5-6, probably due to myelomalacia. C2-3: Unremarkable C3-4: Mild annular disc bulge and facet arthropathy. C4-5: Mild annular disc bulge and facet arthropathy. Mild bilateral neural foraminal narrowing. C5-6: Moderate right paracentral disc protrusion compressing the right side of the spinal cord, similar to prior. Mild right neural foraminal narrowing. C6-7: Mild annular disc bulge is present. C7-T1: Unremarkable IMPRESSION: Dominant right paracentral disc protrusion at C5-6 compresses the right side of the spinal cord, similar to previous. Reviewed, Interpreted and Dictated by Elliot Lay MD Transcribed by Mercy Healy Authenticated and [facility]
== END 2023-09-25 23:59 | disposition home or self-care (01) ==
LOC: RAD 14:39
PROVIDERS: PCP Nurse Practitioner Family; Visit Provider Nurse Practitioner Family
DX: M47.22 Other spondylosis with radiculopathy, cervical region (principal); M48.02 Spinal stenosis, cervical region
CPT/HCPCS: 72141; 76376

== ENCOUNTER 2023-10-08 12:35 | Outpatient (CLI) | payer BC, SELFPAY ==
--- NOTE | 2023-10-08 12:42 | XR_ITS ---
FINAL REPORT CLINICAL HISTORY: rt knee pain COMPARISON: None FINDINGS: Three views of the right knee reveal no evidence of fracture or dislocation. The bony alignment is normal. The joint spaces are preserved. There is no evidence of joint effusion. No localized soft tissue abnormality is identified. IMPRESSION: No acute abnormality identified. Reviewed, Interpreted and Dictated by Silvestre Guadalupe III, MD Transcribed by Paz Crystal Authenticated and [facility]
== END 2023-10-08 23:59 | disposition home or self-care (01) ==
LOC: RAD 12:36
PROVIDERS: PCP Nurse Practitioner Family; Visit Provider Orthopaedic Surgery
DX: M25.561 Pain in right knee (principal)
CPT/HCPCS: 73562

== ENCOUNTER 2023-12-03 13:55 | Outpatient (CLI) | payer BC, SELFPAY ==
--- NOTE | 2023-12-03 13:58 | XR_ITS ---
FINAL REPORT CLINICAL HISTORY: L Foot pain FINDINGS: Left foot Three views were obtained. There is no acute fracture or dislocation. The joint spaces appear normal. No soft tissue abnormality is identified. There is a plantar calcaneal spur. IMPRESSION: No acute process. Reviewed, Interpreted and Dictated by Silvestre Guadalupe III, MD Transcribed by Mercy Healy Authenticated and . [facility]
== END 2023-12-03 23:59 | disposition home or self-care (01) ==
LOC: RAD 13:56
PROVIDERS: PCP Nurse Practitioner Family; Visit Provider Nurse Practitioner Family
DX: M79.672 Pain in left foot (principal)
CPT/HCPCS: 73630

== ENCOUNTER 2023-12-14 11:01 | Outpatient (CLI) | payer BC, SELFPAY ==
--- NOTE | 2023-12-14 11:09 | XR_ITS ---
FINAL REPORT CLINICAL HISTORY: Chronic left foot pain FINDINGS: LEFT FOOT 3 views of the left foot were obtained. There is no acute fracture or dislocation. There is mild calcaneal spurring. Soft tissues are unremarkable. IMPRESSION: No acute bony abnormality. Reviewed, Interpreted and Dictated by Elliot Lay MD Transcribed by Jenna Haines Authenticated and [facility]
--- NOTE | 2023-12-14 11:09 | XR_ITS ---
FINAL REPORT CLINICAL HISTORY: Chronic right foot pain FINDINGS: RIGHT FOOT 3 views of the right foot were obtained. There is no acute fracture or dislocation. There is mild calcaneal spurring. Soft tissues are unremarkable. IMPRESSION: No acute bony abnormality. Reviewed, Interpreted and Dictated by Elliot Lay MD Transcribed by Jenna Haines Authenticated and [facility]
== END 2023-12-14 23:59 | disposition home or self-care (01) ==
LOC: RAD 11:01
PROVIDERS: PCP Nurse Practitioner Family; Visit Provider Nurse Practitioner
DX: M79.671 Pain in right foot (principal); M79.672 Pain in left foot
CPT/HCPCS: 73630

== ENCOUNTER 2024-01-07 13:22 | Outpatient (CLI) | payer BC, SELFPAY ==
--- NOTE | 2024-01-07 13:31 | ECG_ITS ---
APPROVED REPORT Exam: Resting ECG HR:105 bpm ECG Measurements Heart Rate 105 AXES NJ 157 P 61 QRSd 87 QRS 61 QT 332 T 58 QTc 393 Conclusion SINUS TACHYCARDIA ABNORMAL RHYTHM ECG UNCONFIRMED REPORT Electronically signed by : Eddie Bowen MD 01/08/2024 16:00:23
--- NOTE | 2024-01-07 13:53 | XR_ITS ---
FINAL REPORT CLINICAL HISTORY: preop/smoker COMPARISON: None FINDINGS: Two views of the chest were obtained. The heart size and pulmonary vascularity are within normal limits. The mediastinum is normal. No acute pulmonary abnormality is identified. There is no pneumothorax. The bony thorax is intact. IMPRESSION: No active cardiopulmonary disease. Reviewed, Interpreted and Dictated by Silvestre Guadalupe III, MD Transcribed by Paz Crystal Authenticated and [facility]
[2024-01-07 14:13] LABS: Basophils # 0.1 K/mm3 (0-0.2); Basophils % 1.2 % (0.1-2.0); Eosinophils # 0.1 K/mm3 (0.0-0.4); Eosinophils % 1.2 % (0.1-12.0); Hematocrit 48.7 % (37.0-47.0); Lymphocytes # 3.1 K/mm3 (0.7-4.5); Lymphocytes % 37.8 % (10-50); Mean Corpuscular HGB Conc 32.9 g/dL (31.8-35.4); Mean Corpuscular Hemoglobin 32.8 pg (27.0-31.2); Mean Corpuscular Volume 99.6 fl (81-99); Monocytes # 0.6 K/mm3 (0.1-1.0); Monocytes % 6.8 % (1.7-9.3); Neutrophils # 4.4 K/mm3 (1.8-7.8); Platelet Count 114 K/mm3 (142-424); Red Blood Count 4.89 M/mm3 (4.20-5.40); Red Cell Distribution Width 14.6 % (11.5-17.5); White Blood Count 8.3 K/mm3 (4.8-10.8)
[2024-01-07 14:44] LABS: Urine Pregnancy, HCG Qual. Negative (Negative)
[2024-01-07 14:46] LABS: Alanine Aminotransferase 26 U/L (12-78); Albumin Level 4.3 g/dl (3.5-5.0); Albumin/Globulin Ratio 1.4 (1.1-1.8); Alkaline Phosphatase 77 U/L (38-126); Anion Gap 11.8 mEq/L (5-15); Aspartate Amino Transferase 27 U/L (14-36); Bilirubin,Total 0.6 mg/dl (0.2-1.3); Blood Urea Nitrogen 19 mg/dl (7-17); Calcium 9.6 mg/dl (8.4-10.2); Carbon Dioxide 21 mmol/L (22.0-30.0); Chloride 111 mmol/L (98-107); Estimated Glomerular Filt Rate 90 ml/min (>60); GFR (African American) 109 ML/MIN (>60); Glucose 110 mg/dl (74-100); Potassium 4.8 mmoL/L (3.5-5.1); Sodium 139 mmol/L (136-145); Total Protein,Serum 7.3 g/dl (6.3-8.2)
== END 2024-01-07 23:59 | disposition home or self-care (01) ==
LOC: LAB 13:23
PROVIDERS: PCP Nurse Practitioner Family; Visit Provider Student in an Organized Health Care Education/Training Program
DX: J32.0 Chronic maxillary sinusitis (principal); Z72.0 Tobacco use
CPT/HCPCS: 36415; 71046; 80053; 81025; 85025; 93005

== ENCOUNTER 2024-01-13 07:37 | Day surgery (SDC) | payer BC, SELFPAY ==
[2024-01-13] VITALS (9 sets, daily range): BP systolic 115–164; BP diastolic 63–100; PULSE 65–97; RESP 15–18; TEMP 36.3–36.8; O2SAT 93–97; BMI 36.6
--- NOTE | 2024-01-13 08:09 | P.PNANES_ITS ---
[facility] Disclaimer: The information contained in this section may have been updated after the patient was seen, as this information can be updated by other users. Medical History (Updated 01/13/24 @ 08:11 by Cindy Garcia RN) Asthma Chronic sinusitis Gastroparesis Fatty liver Bilateral thumb pain Insomnia Generalized anxiety disorder Recurrent major depression resistant to treatment Type II diabetes mellitus Seizures Surgical History (Updated 01/11/24 @ 09:33 by Camille Sheehan RN) History of cholecystectomy H/O tubal ligation Hx of tonsillectomy Family History Other Diabetes Heart attack Hypertension Stroke Social History (Updated 01/11/24 @ 09:07 by Camille Sheehan RN) Smoking Status: Current every day smoker tobacco type: cigarettes packs per day: 2 alcohol intake: never substance use type: denies use current occupational status: unemployed Travel in the last 8 weeks: None number of children: 2 [facility] Anesthesia Checklist Patient Identification Patient Identification: Arm Band, Family and Verbal (Name & ) Structural Data Admitted From: Home Planned Operative Procedure/s: JULY Maxillary antrostomies w/JULY inf. turb reductions Consent for Planned Operative Procedure(s) Verified: Yes Verified Documents: Surgical Consent and History and Physical NPO Status Verified Time NPO: 23:00 Chart Verification Results Verified: CBC, BMP, ECG and Chest Xray Additional verifications Fingerstick Blood Glucose: 120 Patient : No Anesthesia Reactions: No Cardiovascular Assessment Heart Sounds: S1 & S2 Pulse Rhythm: Irregular Peripheral Edema: No Airway Assessment Mallampati Score:: Class II C-Spine Mobility Assessed: Yes (FROM) TMJ Mobility Assessed: Yes Dentition: Poor Dentition (Nothing loose per pt.) Neurological Assessment Level of Consciousness: Awake, Alert, Appropriate and Follows Commands Hx Seizures: Yes (last one 5 yr ago) Numbness or tingling in extremities: No Anesthesia Plan Anesthesia Risk discussed: Yes Anesthesia Plan: Verified ASA Class: III Anesthesia Type: General
--- NOTE | 2024-01-13 10:29 | EXP.OP.NOTE ---
Date of procedure: 01/13/24 Pre-op Diagnosis:: chronic sinusitis inferior turbinate hypertrophy Post-op Diagnosis:: same Procedure performed:: bilateral maxillary antrostomy, anterior ethmoidectomy, and inferior turbinate reduction Surgeon:: Sammy Ochoa MD [employer] OPERATOR:: Vale Trammell Anesthesia: GETA Estimated blood loss (mL): 25 Operative findings:: ITH bilateral maxillary sinus and anterior ethmoid sinusitis Operative note:: The patient was brought to the OR in supine position. General anesthesia was induced. Patient was prepped and draped in usual fashion. Afrin soaked pledgets were used to decongest her nares. The patient's middle turbinates were medialized and the inferior turbinates lateralized. First starting on the left, a ball-tip probe was used to identify the maxillary sinus os. The uncinate was reflected forward and taken down. The backbiter and debrider were then used to further open up the maxillary antrostomy. I then worked my way through the anterior ethmoid bulla with the debrider to perform the anterior ethmoidectomy. I then turned my attention towards the right side.Again, the maxillary sinus os was identified with a ball-tip probe. The uncinate was reflected forward. The uncinate was taken down with a backbiter and microdebrider. I then worked my way through the anterior ethmoid bulla with the debrider to perform the anterior ethmoidectomy. I then turned my attention towards the turbinates. Stab incision was made at the head of each inferior turbinate. The mucosa was dissected off the underlying bone. The turbinate shaver was then used to perform a submucosal resection. Turbinates were then outfractured. Afrin soaked nova pack was then placed in the middle meatus bilaterally. Her nose and mouth were suctioned out. Counts confirmed correct. She was then turned over to anesthesia to be awoken and extubated. Condition: stable Disposition: PACU Complications:: none
--- NOTE | 2024-01-13 10:33 | P.PNANES_ITS ---
[facility] Anesthesia Record Part I Anesthesia Record I Intake, IV Amount: 500 Hydration: Adequate Estimated blood loss (mL): 25 Urine output (mL): 0 Blood Pressure: 164/100 SaO2: 93 Pulse Rate: 82 Airway Patency: Patent Respiratory Rate: 16 Temperature: 98.2 F Patient is:: Awake Stable to PACU at:: 10:30
[2024-01-13 10:41] LABS: POC Glucose,Bedside 236 (70-110)
--- NOTE | 2024-01-14 10:46 | P.PNANES_ITS ---
[facility] Anesthesia Record Part II Anesthesia Record Part II Discharge Time: 11:00 Destination: Surgical Day Care (OP Surgery) PACU nurse assessment reviewed?: Yes Patient Condition:: Good Anesthesia Complications:: None Swallowing reflex intact?: Yes Airway Patency: Patent Cyanosis?: No Blood Pressure: 117/68 SaO2: 97 Respiratory Rate: 16 Pulse Rate: 91 Temperature: 98 F Mental Status: Alert & Oriented Pain level:: 0 Nausea and/or vomitting:: None Intake, IV Amount: 0 Hydration: Adequate
[2024-01-14 10:47] VITALS: BP 117/68; PULSE 91; RESP 16; TEMP 36.6; O2SAT 97
[2024-01-15 06:37] LABS: POC Glucose,Bedside 120 (70-110)
== END 2024-01-13 11:31 | disposition home or self-care (01) ==
PROVIDERS: PCP Nurse Practitioner Family; Visit Provider Student in an Organized Health Care Education/Training Program
PROC: (CPT 31256; principal; 2024-01-13 09:00)
DX: J32.9 Chronic sinusitis, unspecified (principal); J34.3 Hypertrophy of nasal turbinates; E11.9 Type 2 diabetes mellitus without complications; Z79.84 Long term (current) use of oral hypoglycemic drugs; F17.210 Nicotine dependence, cigarettes, uncomplicated
CPT/HCPCS: 31256; 31254; 30140; 82962; 96374; J3490; J1100; J2250; J2405; J3010; J7120